=== PATIENT | female | born 1985 | race Two or more races ===

== ENCOUNTER 2025-10-04 12:46 | Outpatient (CLI) | payer OTHER | END 2025-10-04 12:47 | disposition home or self-care (01) | LOC: PRENATAL 12:46 | PROVIDERS: ATTEND Obstetrics & Gynecology Maternal & Fetal Medicine | DX: O36.80X0 Pregnancy with inconclusive fetal viability, not applicable or unspecified (principal); Z36.82 Encounter for antenatal screening for nuchal translucency; O28.1 Abnormal biochemical finding on antenatal screening of mother; O09.521 Supervision of elderly multigravida, first trimester; O34.219 Maternal care for unspecified type scar from previous cesarean delivery; Z3A.13 13 weeks gestation of pregnancy ==

== ENCOUNTER → 2025-10-07 12:07 | Outpatient (CLI) | payer OTHER | END | disposition home or self-care (01) | LOC: PRENATAL 12:07 | PROVIDERS: ATTEND Obstetrics & Gynecology Maternal & Fetal Medicine | DX: Z76.1 Encounter for health supervision and care of foundling (principal) ==